=== PATIENT | female | born 1950 | race American Indian/Alaskan Native ===

== ENCOUNTER 2018-07-12 15:23 | Outpatient (CLI) | payer OTHER | END 2018-07-12 23:30 | disposition home or self-care (01) | LOC: RAD 15:23 | DX: J40 Bronchitis, not specified as acute or chronic (principal) ==

== ENCOUNTER 2018-09-05 08:33 | Outpatient (CLI) | payer OTHER | END 2018-09-05 23:40 | disposition home or self-care (01) | LOC: CT 08:33 | DX: R05 Cough (principal) | CPT/HCPCS: 36415; 82565; 84520; Q9963 ==

== ENCOUNTER 2019-01-17 08:12 | Outpatient (CLI) | payer OTHER | END 2019-01-17 21:50 | disposition home or self-care (01) | LOC: RESP 08:12 | DX: R05 Cough (principal) ==

== ENCOUNTER 2020-09-24 10:55 | Outpatient (CLI) | payer OTHER | END 2020-09-24 21:11 | disposition home or self-care (01) | LOC: RAD 10:55 | PROVIDERS: ATTEND Internal Medicine Sleep Medicine | DX: J45.909 Unspecified asthma, uncomplicated (principal) ==

== ENCOUNTER 2022-11-18 15:32 | Outpatient (CLI) | payer OTHER | END 2022-11-18 20:02 | disposition home or self-care (01) | LOC: RAD 15:32 | PROVIDERS: ATTEND Internal Medicine | DX: J40 Bronchitis, not specified as acute or chronic (principal) ==